=== PATIENT | female | born 1970 | race Hispanic/Latino ===

== ENCOUNTER → 2018-02-21 | Outpatient (CLI) | payer BC, MEDICARE ==
[2018-02-21 14:03] LABS: CREATININE 0.8 mg/dL (0.5-1.5); POTASSIUM 4.3 mmol/L (3.5-5.1)
== END | disposition home or self-care (01) ==
LOC: LAB 13:19
PROVIDERS: ATTEND Urology
DX: N39.0 Urinary tract infection, site not specified (principal)
CPT/HCPCS: 36415; 80048

== ENCOUNTER → 2018-02-23 | Outpatient (CLI) | payer BC, MEDICARE ==
[~2018-02-23] MED LIST: IOHEXOL 350 MG/ML 100ML INFUS..BTL IV ONE
== END | disposition home or self-care (01) ==
LOC: RAH 08:47
PROVIDERS: ATTEND Urology
DX: N39.0 Urinary tract infection, site not specified (principal); Z90.49 Acquired absence of other specified parts of digestive tract
CPT/HCPCS: 74400; Q9967

== ENCOUNTER → 2024-12-17 | Outpatient (CLI) | payer BC, MEDICARE ==
--- NOTE | 2024-12-18 06:59 | HMCIMG ---
EXAMINATION: DUPLEX ULTRASOUND EXAMINATION OF THE BILATERAL LOWER EXTREMITY ARTERIES. CLINICAL HISTORY: Pain. COMPARISON: None. FINDINGS: Peak systolic velocities within the right lower arteries are as follows: Common femoral artery: 119 cm/s. Superficial femoral artery: 82 cm/s at proximal, 74 cm/s at mid, and 76 cm/s at distal segments.. Popliteal artery: 68 cm/s at proximal and 58 cm/s at distal segments. Posterior tibial artery: 57 cm/s. Anterior tibial artery: 44 cm/s. Dorsalis pedis artery: 38 cm/s. The right lower limb arteries demonstrate triphasic to biphasic waveforms in all arteries. Peak systolic velocities within the left lower arteries are as follows: Common femoral artery: 119 cm/s. Superficial femoral artery: 98 cm/s at proximal, 84 cm/s at mid, and 80 cm/s at distal segments. Popliteal artery: 69 cm/s at proximal and 64 cm/s at distal segments. Posterior tibial artery: 52 cm/s. Anterior tibial artery: 55 cm/s. Dorsalis pedis artery: 46 cm/s. The left lower limb arteries demonstrate triphasic to biphasic waveforms in all arteries. There is intimal wall thickening in both the lower limb arteries. IMPRESSION: Mild intimal wall thickening in both the lower limb arteries.Both lower limb arteries demonstrate triphasic to biphasic waveforms. No flow limiting lesions. /Leroy
== END | disposition home or self-care (01) ==
LOC: RAH 14:06
PROVIDERS: ATTEND Nurse Practitioner Adult Health
DX: M79.604 Pain in right leg (principal); M79.605 Pain in left leg; R09.89 Other specified symptoms and signs involving the circulatory and respiratory systems
CPT/HCPCS: 93925